=== PATIENT | male | born 1945 | race Caucasian/White ===

== ENCOUNTER 2022-02-12 17:32 | Inpatient (IN) ==
[2022-02-12 18:43] LABS: Basophils # 0.1 K/mcL (0.0-0.2); Basophils % 0.4 %; Eosinophils % 0.2 %; Hematocrit 40.7 % (37.5-50.1); Hemoglobin 13.7 g/dL (12.9-16.9); Immature Granulocytes % 0.5 % (0-4); Lymphocytes # 0.7 K/mcL (0.6-4.6); Lymphocytes % 5.3 %; Mean Corpuscular HGB Conc 33.7 g/dL (31.6-35.5); Mean Corpuscular Hemoglobin 32.6 pg (28.0-33.3); Mean Corpuscular Volume 96.9 fL (83.0-100.0); Monocytes # 0.7 K/mcL (0.0-1.3); Monocytes % 5.1 %; Neutrophils # 11.9 K/mcL (1.6-8.9); Platelet Count 119 K/mcL (140-400); Red Cell Distribution Width 15.2 % (11.5-14.5); Segmented Neutrophils % 88.5 %; White Blood Count 13.4 K/mcL (4.3-11.1)
[2022-02-12 18:53] LABS: Activated Partial Thrombo Time 29.4 Seconds (26.0-36.0)
[2022-02-12 18:58] LABS: Acetaminophen < 10 mcg/mL (10-20); Alanine Aminotransferase 10 Units/L (7-52); Albumin 3.8 g/dL (3.5-5.7); Albumin/Globulin Ratio 1.5 (1.1-2.2); Alkaline Phosphatase 61 Units/L (34-104); Aspartate Amino Transferase 16 Units/L (13-39); BUN/Creatinine Ratio 15 (6-26); Bilirubin,Direct 0.3 mg/dL (0.0-0.2); Bilirubin,Total 1.1 mg/dL (0.3-1.0); Blood Urea Nitrogen 15 mg/dL (8-23); Calcium 9.2 mg/dL (8.6-10.3); Carbon Dioxide 28 mEq/L (23-29); Chloride 96 mEq/L (98-107); Ethanol < 10 mg/dL (Less than 10); Globulin 2.5 g/dL (2.4-3.5); Glucose 98 mg/dL (70-105); Magnesium 1.5 mg/dL (1.6-2.6); Osmolality,Calculated 277 (280-300); Phosphorous 3.8 mg/dL (2.7-4.5); Potassium 4.4 mEq/L (3.5-5.1); Prothrombin Time 11.5 Seconds (9.4-12.1); Sodium 133 mEq/L (136-145); Total Protein 6.3 g/dL (6.4-8.9)
[2022-02-12] MEDS ORDERED: Iopamidol - 370 500 ML MLS IVP ONE (19:25)
[2022-02-12] MEDS ORDERED: cefTRIAXone 1,000 MG in 0.9 % Sodium Chloride Mini Bag 100 ML IVPB ONE (20:25)
[2022-02-12] MEDS ORDERED: Acetaminophen 325 MG TABLET PO PRN (22:51)
[2022-02-12] MEDS ORDERED: Naloxone 0.4 MG/ML INJ IVP PRN (22:51)
[2022-02-12] MEDS ORDERED: Ondansetron 4 MG/2 ML VIAL IVP PRN (22:51)
[2022-02-12] MEDS ORDERED: *HR* OxyCODONE Immed Rel 5 MG TABLET PO PRN (22:51)
[2022-02-12] MEDS ORDERED: *HR* HYDROcodone/Acet 5/325 mg TABLET PO PRN (22:51)
[2022-02-13] MEDS ORDERED: Nicotine 21 MG PATCH.TD24 TD STA (04:08)
[2022-02-13 04:27] LABS: Basophils % 0.3 %; Eosinophils # 0.1 K/mcL (0.0-0.6); Hematocrit 37.8 % (37.5-50.1); Hemoglobin 12.8 g/dL (12.9-16.9); Immature Granulocytes % 0.3 % (0-4); Lymphocytes # 1.7 K/mcL (0.6-4.6); Mean Corpuscular HGB Conc 33.9 g/dL (31.6-35.5); Mean Corpuscular Hemoglobin 32.6 pg (28.0-33.3); Mean Corpuscular Volume 96.2 fL (83.0-100.0); Mean Platelet Volume 9.1 fL (9.4-12.4); Monocytes # 0.8 K/mcL (0.0-1.3); Monocytes % 8.5 %; Neutrophils # 6.2 K/mcL (1.6-8.9); Red Blood Count 3.93 M/mcL (4.19-5.50); Red Cell Distribution Width 15.1 % (11.5-14.5); Segmented Neutrophils % 70.9 %; White Blood Count 8.8 K/mcL (4.3-11.1)
[2022-02-13 04:29] LABS: Bilirubin,Urine Small (Negative); Blood,Urine Negative (Negative); Clarity,Urine Slightly Cloudy (Clear); Glucose,Urine (UA) 100 mg/dL (Normal); Ketones,Urine Trace mg/dL (Negative); Leukocyte Esterase,Urine Negative (Negative); Nitrite,Urine Negative (Negative); PH,Urine 5.5 pH Units (5.0-8.0); Protein,Urine Negative (Neg-Trace); Specific Gravity,Urine 1.015 (1.010-1.025)
[2022-02-13 04:39] LABS: Platelet Count 115 K/mcL (140-400); Platelet Estimate Slight Decrease (Normal)
[2022-02-13 04:41] LABS: Color,Urine Yellow (Yellow)
[2022-02-13 04:41] LABS: Calcium 8.9 mg/dL (8.6-10.3); Magnesium 2.3 mg/dL (1.6-2.6); Potassium 4.2 mEq/L (3.5-5.1)
[2022-02-13 04:42] LABS: Amorphous Sediment,Urine Few per hpf (None-Few)
[2022-02-13 04:44] LABS: Amphetamine Screen,Urine Negative ng/mL (Cutoff=1000); Barbiturate Screen,Urine Negative ng/mL (Cutoff=200); Benzodiazepines Screen,Urine Negative ng/mL (Cutoff=200); Cannabinoid Screen,Urine Negative ng/mL (Cutoff = 50); Cocaine Screen,Urine Negative ng/mL (Cutoff= 300); Opiate Screen,Urine Negative ng/mL (Cutoff=300); Phencyclidine Screen,Urine Negative ng/mL (Cutoff=25)
[2022-02-13] MEDS ORDERED: Nicotine 21 MG PATCH.TD24 TD SCH (09:00)
[2022-02-14 04:59] LABS: Basophils % 0.3 %; Eosinophils # 0.1 K/mcL (0.0-0.6); Eosinophils % 1.8 %; Hematocrit 36.1 % (37.5-50.1); Immature Granulocytes % 0.4 % (0-4); Lymphocytes # 1.7 K/mcL (0.6-4.6); Lymphocytes % 22.6 %; Mean Corpuscular HGB Conc 33.2 g/dL (31.6-35.5); Mean Corpuscular Hemoglobin 32.3 pg (28.0-33.3); Mean Corpuscular Volume 97.3 fL (83.0-100.0); Mean Platelet Volume 9.5 fL (9.4-12.4); Monocytes # 0.6 K/mcL (0.0-1.3); Monocytes % 8.4 %; Neutrophils # 5.1 K/mcL (1.6-8.9); Red Blood Count 3.71 M/mcL (4.19-5.50); Red Cell Distribution Width 15.1 % (11.5-14.5); Segmented Neutrophils % 66.5 %; White Blood Count 7.6 K/mcL (4.3-11.1)
[2022-02-14 05:07] LABS: Platelet Count 109 K/mcL (140-400); Platelet Estimate Slight Decrease (Normal)
[2022-02-14 05:14] LABS: BUN/Creatinine Ratio 19 (6-26); Blood Urea Nitrogen 15 mg/dL (8-23); Calcium 8.9 mg/dL (8.6-10.3); Carbon Dioxide 29 mEq/L (23-29); Chloride 96 mEq/L (98-107); Glucose 87 mg/dL (70-105); Magnesium 1.7 mg/dL (1.6-2.6); Osmolality,Calculated 266 (280-300); Potassium 4.2 mEq/L (3.5-5.1); Sodium 128 mEq/L (136-145)
[2022-02-14 16:39] LABS: Albumin 3.3 g/dL (3.5-5.7); Albumin/Globulin Ratio 1.4 (1.1-2.2); Bilirubin,Direct 0.1 mg/dL (0.0-0.2); Bilirubin,Indirect 0.3 mg/dL (0.0-1.0); Bilirubin,Total 0.4 mg/dL (0.3-1.0); Globulin 2.4 g/dL (2.4-3.5); Total Protein 5.7 g/dL (6.4-8.9)
[2022-02-14] MEDS: Nicotine 21 MG PATCH.TD24 TD SCH (16:52)
[2022-02-15] MEDS: Nicotine 21 MG PATCH.TD24 TD SCH (08:55)
[2022-02-15 16:26] LABS: Calcium 8.9 mg/dL (8.6-10.3); Magnesium 1.6 mg/dL (1.6-2.6); Potassium 4.3 mEq/L (3.5-5.1)
[2022-02-15 16:38] LABS: Thyroid Stimulating Hormone 6.957 mcIU/mL (0.340-5.600)
[2022-02-15 19:36] LABS: Triiodothyronine (T3) Free 2.44 pg/mL (2.50-3.90)
[2022-02-16] MEDS: Nicotine 21 MG PATCH.TD24 TD SCH (09:12)
[2022-02-16] MEDS ORDERED: *HR* LORazepam 1 MG TABLET PO ONE (09:19)
[2022-02-16] MEDS: Cyanocobalamin (B-12) 1,000 MCG/ML VIAL SQ SCH (12:48)
[2022-02-17] MEDS ORDERED: Levothyroxine 25 MCG TABLET PO SCH (06:30)
[2022-02-17 07:19] VITALS: O2SAT 91
[2022-02-17] MEDS: Cyanocobalamin (B-12) 1,000 MCG/ML VIAL SQ SCH (08:34)
[2022-02-17] MEDS: Nicotine 21 MG PATCH.TD24 TD SCH (08:34)
[2022-02-17 13:25] VITALS: BP 114/70; PULSE 56; RESP 15; TEMP 97.5
== END 2022-02-17 16:15 | disposition other institution (70) | DRG 897 ==
LOC: EMEROOGRE 17:32 → INPGRE 17:32
PROVIDERS: ADMIT Pharmacist; ATTEND Pharmacist

== ENCOUNTER 2022-02-17 16:01 | Inpatient (IN) ==
[2022-02-17] MEDS ORDERED: *HR* OxyCODONE Immed Rel 5 MG TABLET PO PRN (16:34)
[2022-02-17] MEDS ORDERED: Acetaminophen 325 MG TABLET PO PRN (16:49)
[2022-02-17] MEDS ORDERED: *HR* HYDROcodone/Acet 5/325 mg TABLET PO PRN (16:52)
[2022-02-17] MEDS ORDERED: Ondansetron ODT 4 MG TAB.RAPDIS SL PRN (16:53)
[2022-02-18 04:00] LABS: Basophils # 0.1 K/mcL (0.0-0.2); Basophils % 0.7 %; Eosinophils # 0.2 K/mcL (0.0-0.6); Eosinophils % 3.1 %; Hematocrit 35.9 % (37.5-50.1); Hemoglobin 12.1 g/dL (12.9-16.9); Immature Granulocytes % 0.4 % (0-4); Lymphocytes # 1.6 K/mcL (0.6-4.6); Lymphocytes % 22.3 %; Mean Corpuscular HGB Conc 33.7 g/dL (31.6-35.5); Mean Corpuscular Hemoglobin 32.4 pg (28.0-33.3); Mean Corpuscular Volume 96.2 fL (83.0-100.0); Mean Platelet Volume 9.8 fL (9.4-12.4); Monocytes # 0.8 K/mcL (0.0-1.3); Monocytes % 11.8 %; Neutrophils # 4.4 K/mcL (1.6-8.9); Platelet Count 132 K/mcL (140-400); Red Blood Count 3.73 M/mcL (4.19-5.50); Red Cell Distribution Width 14.8 % (11.5-14.5); Segmented Neutrophils % 61.7 %; White Blood Count 7.1 K/mcL (4.3-11.1)
[2022-02-18 04:15] LABS: BUN/Creatinine Ratio 17 (6-26); Blood Urea Nitrogen 14 mg/dL (8-23); Calcium 9.1 mg/dL (8.6-10.3); Carbon Dioxide 28 mEq/L (23-29); Chloride 101 mEq/L (98-107); Glucose 90 mg/dL (70-105); Osmolality,Calculated 278 (280-300); Potassium 4.2 mEq/L (3.5-5.1); Sodium 134 mEq/L (136-145)
[2022-02-18] MEDS: *HR* Enoxaparin 40 MG/0.4 ML SYRINGE SQ SCH (06:41)
[2022-02-18] MEDS: Levothyroxine 25 MCG TABLET PO SCH (06:41)
[2022-02-18] MEDS: Nicotine 21 MG PATCH.TD24 TD SCH (08:36)
[2022-02-18] MEDS: Cyanocobalamin (B-12) 1,000 MCG/ML VIAL SQ SCH (08:36)
[2022-02-19] MEDS: Levothyroxine 25 MCG TABLET PO SCH (06:19)
[2022-02-19] MEDS: *HR* Enoxaparin 40 MG/0.4 ML SYRINGE SQ SCH (06:19)
[2022-02-19] MEDS: Cyanocobalamin (B-12) 1,000 MCG/ML VIAL SQ SCH (09:32)
[2022-02-19] MEDS: Nicotine 21 MG PATCH.TD24 TD SCH (09:33)
[2022-02-20] MEDS: Levothyroxine 25 MCG TABLET PO SCH (06:10)
[2022-02-20] MEDS: *HR* Enoxaparin 40 MG/0.4 ML SYRINGE SQ SCH (06:10)
[2022-02-20] MEDS: Nicotine 21 MG PATCH.TD24 TD SCH (08:52)
[2022-02-20] MEDS: Cyanocobalamin (B-12) 1,000 MCG/ML VIAL SQ SCH (13:26)
[2022-02-21] MEDS: *HR* Enoxaparin 40 MG/0.4 ML SYRINGE SQ SCH (05:28)
[2022-02-21] MEDS: Levothyroxine 25 MCG TABLET PO SCH (05:28)
[2022-02-21] MEDS: Nicotine 21 MG PATCH.TD24 TD SCH (08:27)
[2022-02-21] MEDS: Cyanocobalamin (B-12) 1,000 MCG/ML VIAL SQ SCH (08:28)
[2022-02-21] MEDS: BuPROPion XL (24 HR) 150 MG TABLET PO SCH (19:10)
[2022-02-22 04:43] LABS: Hematocrit 36.8 % (37.5-50.1); Hemoglobin 12.2 g/dL (12.9-16.9); Mean Corpuscular HGB Conc 33.2 g/dL (31.6-35.5); Mean Corpuscular Volume 96.6 fL (83.0-100.0); Mean Platelet Volume 9.1 fL (9.4-12.4); Platelet Count 150 K/mcL (140-400); Red Blood Count 3.81 M/mcL (4.19-5.50); Red Cell Distribution Width 14.4 % (11.5-14.5); White Blood Count 6.5 K/mcL (4.3-11.1)
[2022-02-22 05:01] LABS: Alanine Aminotransferase 8 Units/L (7-52); Albumin 3.6 g/dL (3.5-5.7); Albumin/Globulin Ratio 1.4 (1.1-2.2); Alkaline Phosphatase 42 Units/L (34-104); Aspartate Amino Transferase 13 Units/L (13-39); BUN/Creatinine Ratio 20 (6-26); Bilirubin,Total 0.4 mg/dL (0.3-1.0); Blood Urea Nitrogen 16 mg/dL (8-23); Calcium 9.3 mg/dL (8.6-10.3); Carbon Dioxide 30 mEq/L (23-29); Chloride 101 mEq/L (98-107); Globulin 2.6 g/dL (2.4-3.5); Glucose 86 mg/dL (70-105); Magnesium 1.7 mg/dL (1.6-2.6); Osmolality,Calculated 282 (280-300); Potassium 4.7 mEq/L (3.5-5.1); Sodium 136 mEq/L (136-145); Total Protein 6.2 g/dL (6.4-8.9)
[2022-02-22] MEDS: Levothyroxine 25 MCG TABLET PO SCH (05:35)
[2022-02-22] MEDS: *HR* Enoxaparin 40 MG/0.4 ML SYRINGE SQ SCH (05:35)
[2022-02-22] MEDS: Nicotine 21 MG PATCH.TD24 TD SCH (07:58)
[2022-02-22] MEDS: BuPROPion XL (24 HR) 150 MG TABLET PO SCH (07:58)
[2022-02-22] MEDS: Cyanocobalamin (B-12) 1,000 MCG/ML VIAL SQ SCH (07:59)
[2022-02-23] MEDS: *HR* Enoxaparin 40 MG/0.4 ML SYRINGE SQ SCH (05:28)
[2022-02-23] MEDS: Levothyroxine 25 MCG TABLET PO SCH (05:28)
[2022-02-23] MEDS: BuPROPion XL (24 HR) 150 MG TABLET PO SCH (08:00)
[2022-02-23] MEDS: Nicotine 21 MG PATCH.TD24 TD SCH (08:00)
[2022-02-23] MEDS: Cyanocobalamin (B-12) 1,000 MCG/ML VIAL SQ SCH (08:00)
[2022-02-24] MEDS: *HR* Enoxaparin 40 MG/0.4 ML SYRINGE SQ SCH (05:45)
[2022-02-24] MEDS: Levothyroxine 25 MCG TABLET PO SCH (05:45)
[2022-02-24] MEDS: BuPROPion XL (24 HR) 150 MG TABLET PO SCH (08:23)
[2022-02-24] MEDS: Nicotine 21 MG PATCH.TD24 TD SCH (08:23)
[2022-02-25] MEDS: Levothyroxine 25 MCG TABLET PO SCH (05:41)
[2022-02-25] MEDS: *HR* Enoxaparin 40 MG/0.4 ML SYRINGE SQ SCH (05:41)
[2022-02-25 07:12] VITALS: BP 130/78; PULSE 57; RESP 16; TEMP 98; O2SAT 95
[2022-02-25] MEDS: Nicotine 21 MG PATCH.TD24 TD SCH (08:30)
[2022-02-25] MEDS: BuPROPion XL (24 HR) 150 MG TABLET PO SCH (08:30)
== END 2022-02-25 10:50 | disposition home or self-care (01) | DRG 897 ==
LOC: INPGRE 16:17
PROVIDERS: ADMIT Family Medicine; ATTEND Family Medicine